=== PATIENT | female | born 2000 | race Caucasian/White ===

== ENCOUNTER 2020-07-15 10:00 | Outpatient (RCR) | payer OTHER, MEDICAID, SELFPAY ==
--- NOTE | 2020-04-16 14:26 | PTOPEVAL ---
PHYSICAL THERAPY EVALUATION AND PLAN OF CARE Thank you for referring Martine Lennon to [facility].? The patient is scheduled to be seen for therapy? 2x/week for 4-6 weeks. Please review, sign, date and return this plan of care GLORIA. I agree with and certify that the following plan of care is medically necessary. Referring Physician Date Attending Provider: Courtney Vides, MD Evaluation Respiratory History Hx Asthma Yes Diagnosis left shoulder pain Onset 3 years ago Subjective Information Martine is here today reporting Query Text:As Reported By Patient/ difficulty using left shoulder Family . States that she was told she uses her trapezius muscle instead of rotator cuff and so moving the arm is diffcult. Has pain in the left shoulder when using the arm alot. Hand Dominance Right Self Report Pain Assessment Left Shoulder(s) Reported Pain Level 0 Pain Description Sharp Pain Frequency Chronic,Intermittent Lowest Pain Intensity 0 Greatest Pain Intensity 6 Pain Aggravating Factors Lifting Pain Score Pain Score 0: Self Report Upper Extremity Range of Motion Scapular/ Shoulder Range of Motion Right Shoulder Flexion - Active 165 Shoulder Abduction - Active 165 Shoulder Medial Rotation - Active 80 Shoulder Medial Rotation - Active contralateral scapular tip Query Text:Reach Behind the Back Left Shoulder Flexion - Active 135 Shoulder Abduction - Active 127 Shoulder Medial Rotation - Active 49 Shoulder Medial Rotation - Active contralateral scapular tip Query Text:Reach Behind the Back Scapular/Shoulder Right Scapular Retraction - Middle Trapezius 3- Fair - Scapular Retraction - Lower Trapezius 3- Fair - Shoulder Flexion Strength 4+ Good + Shoulder Abduction Strength 4+ Good + Shoulder Medial Rotation Strength 4+ Good + Shoulder Lateral Rotation Strength 4+ Good + Left Scapular Retraction - Middle Trapezius 3- Fair - Scapular Retraction - Lower Trapezius 3- Fair - Shoulder Flexion Strength 3+ Fair + Shoulder Abduction Strength 3+ Fair + Shoulder Medial Rotation Strength 4 Good Shoulder Lateral Rotation Strength 4- Good - Sitting Position Posture Evaluation View Anterior Head/C-Spine Posture Extended Thoracic Spine Posture Neutral Shoulder Posture (L) Forward Scapula Posture (L) Protracted,(R) Protracted,tipped Palpation trigger point noted to left and right upper trapezius; decreased cervical cur
--- NOTE | 2020-05-14 08:14 | PTOPEVAL ---
PHYSICAL THERAPY PLAN OF CARE UPDATE AND PROGRESS REPORT Thank you for referring Martine Lennon to [facility].? The patient is scheduled to be seen for therapy? 2x/week for 4 weeks. Please review, sign, date and return this plan of care GLORIA. I agree with and certify that the following plan of care is medically necessary. Referring Physician Date Attending Provider: Courtney Vides, MD Progress Diagnosis left shoulder pain Onset 3 years ago Subjective Information Martine reports there are some Query Text:As Reported By Patient/ changes in the shoulder pain. Family Does continue to experience pain symptoms. Notes that symptoms increase while driving. Self Report Pain Assessment Left Shoulder(s) Reported Pain Level 3 Pain Description Aching,Sharp Pain Frequency Chronic,Intermittent Pain Aggravating Factors Lifting Pain Score Pain Score 3: Self Report Additional Pain Score Comments reported pain comes and goes depends on what I did that day Upper Extremity Range of Motion Scapular/ Shoulder Range of Motion Right Shoulder Flexion - Active 165 Shoulder Abduction - Active 165 Shoulder Medial Rotation - Active 80 Shoulder Medial Rotation - Active contralateral scapular tip Query Text:Reach Behind the Back Left Shoulder Flexion - Active 150 Shoulder Abduction - Active 140 Shoulder Medial Rotation - Active contralateral scapular tip Query Text:Reach Behind the Back Shoulder Lateral Rotation - Active 65 Upper Extremity Muscle Strength Testing Scapular/Shoulder Right Scapular Retraction - Middle Trapezius 3- Fair - Scapular Retraction - Lower Trapezius 3- Fair - Shoulder Flexion Strength 4+ Good + Shoulder Abduction Strength 4+ Good + Shoulder Medial Rotation Strength 4+ Good + Shoulder Lateral Rotation Strength 4+ Good + Left Scapular Retraction - Middle Trapezius 3- Fair - Scapular Retraction - Lower Trapezius 3- Fair - Shoulder Flexion Strength 4 Good Shoulder Abduction Strength 4 Good Shoulder Medial Rotation Strength 4 Good Shoulder Lateral Rotation Strength 4 Good PT Clinical Summary Martine is demonstrating progress toward meeting her functional goals. Demonstrating significantly improved ROM and mild progress in strengthening. She continues to experience mild to moderate limitations as well as pain symptoms. I recommend continuing skilled
--- NOTE | 2020-05-28 09:39 | PCPTNOTE ---
Addendum entered by Sindhu Bean, PT, DPT 05/28/20 10:50: Patient's mother called back to inform that Martine did not have a ride for her appointment this morning, but will be at her next appointment. Original Note: Patient did not show up for scheduled appointment this date. Called and left a message with her next appointment date and time.
--- NOTE | 2020-06-12 13:14 | PTOPEVAL ---
PHYSICAL THERAPY PLAN OF CARE UPDATE Thank you for referring Martine Lennon to [facility].? The patient is scheduled to be seen for therapy? 2x/week for 4 weeks. Please review, sign, date and return this plan of care GLORIA. I agree with and certify that the following plan of care is medically necessary. Referring Physician Date Attending Provider: Courtney Vides, MD Diagnosis left shoulder pain Onset 3 years ago Subjective Information Reports that the left shoulder Query Text:As Reported By Patient/ no longer hurts every day. Family There continue to be days that are really bad without reason. There are also times there is a lot of pain if she is using the arm alot of if she is using the arm overhead a lot. States that when she has a lot of pain she uses ice on the shoulder. Self Report Pain Assessment Left Shoulder(s) Reported Pain Level 0 Pain Description Aching Pain Frequency Chronic,Intermittent Pain Aggravating Factors Lifting Pain Score Scapular/ Shoulder Range of Motion Right Shoulder Flexion - Active 165 Shoulder Abduction - Active 165 Shoulder Medial Rotation - Active 80 Shoulder Medial Rotation - Active contralateral scapular tip Query Text:Reach Behind the Back Left Shoulder Flexion - Active 150 Shoulder Abduction - Active 140 Shoulder Medial Rotation - Active contralateral scapular tip Query Text:Reach Behind the Back Shoulder Lateral Rotation - Active 65 Upper Extremity Muscle Strength Testing Scapular/Shoulder Right Scapular Retraction - Middle Trapezius 3 Fair Scapular Retraction - Lower Trapezius 3 Fair Shoulder Flexion Strength 4+ Good + Shoulder Abduction Strength 4+ Good + Shoulder Medial Rotation Strength 4+ Good + Shoulder Lateral Rotation Strength 4+ Good + Left Scapular Retraction - Middle Trapezius 3- Fair - Scapular Retraction - Lower Trapezius 2+ Poor + Shoulder Flexion Strength 4+ Good + Shoulder Abduction Strength 4+ Good + Shoulder Medial Rotation Strength 4+ Good + Shoulder Lateral Rotation Strength 4+ Good + Posture Posture Sitting Position Posture Evaluation View Anterior Head/C-Spine Posture Extended Thoracic Spine Posture Neutral Shoulder Posture (L) Forward Scapula Posture (L) Protracted,(R) Protracted, (L) Tipped,(R) Tipped Palpation decreased cervical curve; notes tenderness today along lateral scapular border PT Clinical S
--- NOTE | 2020-07-15 10:32 | PTOPEVAL ---
PHYSICAL THERAPY DISCHARGE NOTE Thank you for referring Martine Lennon to [facility]. Please review, sign, date and return this plan of care GLORIA. I agree with and certify that the following plan of care is medically necessary. Referring Physician Date Attending Provider: Courtney Vides, MD Diagnosis left shoulder pain Onset 3 years ago Subjective Information Reports nothing new. Reports the shoulder is good. Self Report Pain Assessment Left Shoulder(s) Reported Pain Level 4 Pain Description Soreness Pain Frequency Intermittent Pain Behaviors None Interventions Used Interventions Used By Clinicians Exercise,Manual Therapy Techniques Pain Relief Interventions Used By None Patient Upper Extremity Range of Motion Scapular/ Shoulder Range of Motion Right Shoulder Flexion - Active 160 Shoulder Abduction - Active 160 Shoulder Medial Rotation - Active 80 Shoulder Medial Rotation - Active contralateral scapular tip Query Text:Reach Behind the Back Left Shoulder Flexion - Active 155 Shoulder Abduction - Active 155 Shoulder Medial Rotation - Active contralateral scapular tip Query Text:Reach Behind the Back Shoulder Lateral Rotation - Active 65 Upper Extremity Muscle Strength Testing Scapular/Shoulder Right Scapular Retraction - Middle Trapezius 3+ Fair + Scapular Retraction - Lower Trapezius 3+ Fair + Shoulder Flexion Strength 4+ Good + Shoulder Abduction Strength 4+ Good + Shoulder Medial Rotation Strength 4+ Good + Shoulder Lateral Rotation Strength 4+ Good + Left Scapular Retraction - Middle Trapezius 3 Fair Scapular Retraction - Lower Trapezius 3 Fair Shoulder Flexion Strength 4+ Good + Shoulder Abduction Strength 4+ Good + Shoulder Medial Rotation Strength 4+ Good + Shoulder Lateral Rotation Strength 4+ Good + Posture Posture Evaluation View Anterior Head/C-Spine Posture Extended Thoracic Spine Posture Neutral Shoulder Posture (L) Rounded,(R) Rounded Scapula Posture (L) Protracted,(R) Protracted, (L) Winged,(R) Winged Palpation decreased cervical curve Rehab Teaching Teaching Topic Rehab Teaching Topic Components Body Mechanics,Exercise, Positioning As Pertains To Body Mechanics,Progression Recipient Patient Learning Preferences Demonstration,Discussion Barriers to Learning Motivation,Physical Readiness to Learn Fair Response Returns Demonstration, Verbalizes Understanding,
== END 2020-07-15 23:59 | disposition home or self-care (01) ==
LOC: ANHPT 10:00
PROVIDERS: Referring Provider Internal Medicine; Visit Provider Internal Medicine
DX: S46.012D Strain of muscle(s) and tendon(s) of the rotator cuff of left shoulder, subsequent encounter (principal); M95.8 Other specified acquired deformities of musculoskeletal system; M89.9 Disorder of bone, unspecified
CPT/HCPCS: 97110; 97140; 97161

== ENCOUNTER 2021-03-31 22:56 | Emergency (ER) | payer BC, SELFPAY ==
--- NOTE | ~2021-03-31 | CT_ITS ---
EXAMINATION: CT brain wo con INDICATION: Headache, right-sided numbness, three syncopal episodes in the past week COMPARISON: 03/15/2018 TECHNIQUE: Standard unenhanced head CT. The dose-length product (DLP) was 529.67 mGy-cm. The mA was a djusted according to patient size. Iterative reconstruction technique was employed. FINDINGS: There is no intracranial hemorrhage, acute infarction, or abnormal mass lesion. The ventric les are normal. There is no abnormal mass effect or midline shift. The reed-white matter differentiat ion is normal. The basal cisterns are patent. The orbits are normal. The paranasal sinuses, mastoids and calvarium are normal. IMPRESSION: 1. No acute intracranial abnormality. Reviewed, dictated and finalized at location A.
[2021-03-31 22:57] VITALS: BP 141/101; PULSE 100; RESP 20; TEMP 36.6; O2SAT 100
--- NOTE | 2021-03-31 23:02 | ECG_ITS ---
Measurements Intervals [place] Rate: 90 P: 53 DC: 150 QRS: 52 QRSD: 74 T: -12 QT: 354 QTc: 434 Interpretive Statements SINUS RHYTHM POSSIBLE LEFT ATRIAL ENLARGEMENT BORDERLINE ST-T WAVE ABNORMALITY- ANTEROLAT/INF LEADS BASELINE WANDER- V3-V4 BORDERLINE ECG Electronically Signed On 04-01-2021 6:28:28 CDT by Pio Kelly D.O.
[2021-03-31 23:26] LABS: Basophils Percent Auto 0.5 % (0.2-1.2); Eosinophils Absolute Auto 0.1 K/mm3 (0-0.3); Eosinophils Percent Auto 0.7 % (0-4.4); Hematocrit 41.7 % (37.0-47.0); Hemoglobin 14.3 g/dL (12.0-15.0); Immature Granulocyte Absolute 0.01 K/mm3 (0.00-0.031); Immature Granulocyte Percent A 0.1 % (0-0.5); Lymphocytes Absolute Auto 4.03 K/mm3 (0.9-3.2); Mean Corpuscular HGB Conc 34.3 g/dl (32-36); Mean Corpuscular Volume 90.5 fl (80-100); Mean Platelet Volume 11.6 fl (7.4-10.4); Monocytes Absolute Auto 0.3 K/mm3 (0.1-0.6); Neutrophils Absolute Auto 3.9 K/mm3 (1.3-6.7); Neutrophils Percent Auto 46.7 % (45.5-73.1); Platelet Count Result 216 k/mm3 (150-375); Red Blood Count 4.61 M/mm3 (4.2-5.4); Red Cell Distribution Width 12.4 % (11.5-14.5); White Blood Count 8.4 K/mm3 (4.5-10.0)
[2021-03-31 23:35] LABS: Anion Gap 7 mmol/L (8-16); Blood Urea Nitrogen 13 mg/dL (7-17); Calcium 9.2 mg/dL (8.4-10.2); Carbon Dioxide 25 mmol/L (22-30); Chloride 108 mmol/L (98-107); Estimated CRCL calculation 100 ml/min; Estimated Glomerular Filt Rate > 60; Glucose 127 mg/dL (65-110); Potassium 3.6 mmol/L (3.4-5.0); Sodium 140 mmol/L (137-145)
[2021-04-01] VITALS (28 sets, daily range): BP systolic 100–121; BP diastolic 62–88; PULSE 56–89; RESP 10–29; TEMP 36.1; O2SAT 96–100
--- NOTE | 2021-04-01 01:15 | PC.NURSE ---
pt here c/o numbness to right side of body. able to move all extremities and able to ambulate without difficulty. pt also c/o fingers in right hand closing up into a fist. pt's mother reports pt has silent migraines and right side of body did react like this during first episode of silent migraines 5 years ago.
[2021-04-01] MEDS: METOCLOPRAMIDE HCL INJ 10 MG/2 ML VIAL IV PUSH (02:59)
[2021-04-01] MEDS: KETOROLAC 30 MG/ML VIAL (*BKC) IV PUSH (02:59)
--- NOTE | 2021-04-01 04:04 | ED.GENADULT ---
HPI - General Adult General Chief complaint: Unspecified Stated complaint: cant feel the R side of body/ CP Time Seen by Provider: 04/01/21 01:36 History of Present Illness HPI narrative: Patient is a 20-year-old female presents to emergency department with chief complaint of numbness on the right side of the face and numbness in the right upper extremity and headache. The patient reports that she has history of silent migraines before in the past and reports that she had some paresthesias with her face previously patient reports this feels similar except this time she actually does have a headache in the right side of her head and reports that she has slight weakness in the right upper extremity and paresthesias in the right upper extremity. Patient reports she has seen a neurologist before in the past for this and reports that the symptoms started around 6:00 PM. Related Data Allergies Allergy/AdvReac Type Severity Reaction Status Date / Time diphenhydramine Allergy Anaphylaxis Verified 04/01/21 02:58 [From [facility]] Review of Systems Review of Systems: A 10 system review of systems was completed on the patient and is negative except for what is stated in the HPI. Nursing and ancillary documentation was reviewed. [facility] Social History Social History Gender identity (if verbalized by the patient): Female Exam Narrative: GENERAL: Well-appearing, well-nourished, and in no acute distress. HEAD: Normocephalic, atraumatic. EYES: PERRLA and EOMI. ENT: Nares clear, no rhinorrhea or epistaxis. Mucous membranes moist. NECK: Supple. CHEST: Clear to auscultation. No respiratory distress. HEART: Regular rate and rhythm. No murmur heard. Normal peripheral pulses. ABDOMEN: Soft, nontender, nondistended, normal active bowel sounds. EXTREMITIES: Normal range of motion. No edema. SKIN: Warm, dry, no rash. NEURO: No focal deficits. Alert and oriented x3. PSYCH: Normal mood and affect. Course Course Emergency Course: Patient CT head showed no evidence of acute abnormality The patient received Toradol and Reglan and had significant improvement in her symptoms. Vital Signs Vital signs: Vital Signs Temperature 36.6 C 03/31/21 22:57 Pulse Rate 100 03/31/21 22:57 Respiratory Rate 20 03/31/21 22:57 Blood Pressure 141/101 H 03/31/21 22:57 Pulse Oximetry 100 03/31/21 22:57 Temperature 36.6 C 03/31/21 22:57 Pulse Rate 77 04/01/21 03:16 Respiratory Rate 21 H 04/01/21 03:16 Blood Pressure 106/65 04/01/21 03:16 Pulse Oximetry 98 04/01/21 03:16 Medical Decision Making Vital Signs Vital Signs: Vital Signs Temperature 36.6 C 03/31/21 22:57 Pulse Rate 100 03/31/21 22:57 Respiratory Rate 20 03/31/21 22:57 Blood Pressure 141/101 H 03/31/21 22:57 Pulse Oximetry 100 03/31/21 22:57 Temperature 36.6 C 03/31/21 22:57 Pulse Rate 77 04/01/21 03:16 Respiratory Rate 21 H 04/01/21 03:16 Blood Pressure 106/65 04/01/21 03:16 Pulse Oximetry 98 04/01/21 03:16 Lab Data Result diagrams: 03/31/21 23:15 03/31/21 23:15 Labs: Lab Results 03/31/21 03/31/21 Range/Units 23:15 23:15 WBC 8.4 (4.5-10.0) K/mm3 RBC 4.61 (4.2-5.4) M/mm3 Hgb 14.3 (12.0-15.0) g/dL Hct 41.7 (37.0-47.0) % MCV 90.5 (80-100) fl MCH 31.0 (26-34) pg MCHC 34.3 (32-36) g/dl RDW 12.4 (11.5-14.5) % Plt Count 216 (150-375) k/mm3 MPV 11.6 H (7.4-10.4) fl Immature Gran % (Auto) 0.1 (0-0.5) % Neut % (Auto) 46.7 (45.5-73.1) % Lymph % (Auto) 48.0 H (18.3-44.2) % [place] % (Auto) 4.0 (2.6-8.5) % Eos % (Auto) 0.7 (0-4.4) % Baso % (Auto) 0.5 (0.2-1.2) % Lymph # (Auto) 4.03 H (0.9-3.2) K/mm3 [place] # (Auto) 0.3 (0.1-0.6) K/mm3 Eos # (Auto) 0.1 (0-0.3) K/mm3 Baso # (Auto) 0.0 (0.0-0.1) K/mm3 Abs Immat Gran (auto) 0.01 (0.00-0.031) K/mm3 Abs
== END 2021-04-01 04:42 | disposition home or self-care (01) ==
PROVIDERS: Emergency Provider Emergency Medicine
DX: G43.409 Hemiplegic migraine, not intractable, without status migrainosus (principal); R94.31 Abnormal electrocardiogram [ECG] [EKG]
CPT/HCPCS: 36415; 70450; 80048; 81025; 85025; 93005; 96374; 96375; 99284; J1885; J2765

== ENCOUNTER 2021-08-13 10:01 | Outpatient (CLI) | payer BC, SELFPAY ==
[2021-08-13 11:16] LABS: Hematocrit 40.1 % (37.0-47.0); Hemoglobin 13.9 g/dL (12.0-15.0); Mean Corpuscular HGB Conc 34.7 g/dl (32-36); Mean Corpuscular Hemoglobin 31.7 pg (26-34); Mean Corpuscular Volume 91.6 fl (80-100); Mean Platelet Volume 10.9 fl (7.4-10.4); Platelet Count Result 219 k/mm3 (150-375); Red Blood Count 4.38 M/mm3 (4.2-5.4); Red Cell Distribution Width 12.5 % (11.5-14.5); White Blood Count 7.8 K/mm3 (4.5-10.0)
[2021-08-13 12:14] LABS: Beta HCG Quantitative < 2.39 mIU/ML
== END 2021-08-13 10:02 | disposition home or self-care (01) ==
PROVIDERS: Visit Provider Obstetrics & Gynecology
DX: N92.1 Excessive and frequent menstruation with irregular cycle (principal)
CPT/HCPCS: 36415; 84443; 84702; 85027

== ENCOUNTER 2021-08-16 21:37 | Emergency (ER) | payer BC, SELFPAY ==
--- NOTE | ~2021-08-16 | CT_ITS ---
EXAMINATION: CT brain wo con DATE: 08/17/2021 00:54 INDICATION: Headache. TECHNIQUE: Computed tomography (CT) of the head was performed without intravenous contrast. The mA wa s adjusted according to patient size. Iterative reconstruction technique was employed. The dose-lengt h product was 605.33 mGy-cm. COMPARISON: Head CT 04/01/21 FINDINGS: There is no intracranial hemorrhage, acute infarction, or abnormal intracranial mass lesion . The ventricles are normal in size. The mastoid air cells are normal. The paranasal sinuses are jaylin r. The orbits are normal. IMPRESSION: 1. Normal brain. Reviewed, dictated and finalized at location A. STOMACH PREPARER IMPRESSION: 1. Normal brain.
[2021-08-16 21:42] VITALS: BP 135/78; PULSE 98; RESP 15; TEMP 36.4; O2SAT 97
--- NOTE | 2021-08-16 21:45 | PC.NURSE ---
mother's name is Pavel [phone]
--- NOTE | 2021-08-16 23:46 | PC.NURSE ---
Patient awake and alert, speaking with this RN about speaking with her mother. Patient informed of phone at security desk. Patient a/ox4.
[2021-08-17] MEDS: KETOROLAC 15 MG/ML VIAL (*BKC) IV PUSH (00:38)
[2021-08-17] MEDS: METOCLOPRAMIDE HCL INJ 10 MG/2 ML VIAL IV PUSH (00:39)
[2021-08-17] MEDS: SODIUM CHLORIDE 0.9% IV 1,000 ML 999 ML IV CONT (00:39)
--- NOTE | 2021-08-17 02:57 | ED.GENADULT ---
HPI - General Adult General Chief complaint: Headache Stated complaint: complex migraines Time Seen by Provider: 08/17/21 00:13 History of Present Illness HPI narrative: Patient 21-year-old female presents emerged part with chief complaint of headache. Patient reports she has history of complicated migraines and noticed that she started having a headache again and started feeling strange. Patient states little atypical compared to her normal migraine but states that she feels a little weaker than normal and has had some mild difficulty with getting appropriate words out. Patient denies any other focal neurological deficits. Related Data Home Medications Medication Instructions Recorded Confirmed albuterol sulfate 90 mcg/actuation 2 inh INHALATION Q6H PRN 08/13/21 08/13/21 breath activated powder inhaler Allergies Allergy/AdvReac Type Severity Reaction Status Date / Time latex Allergy Unknown Rash Verified 08/16/21 21:37 diphenhydramine Allergy Anaphylaxis Verified 08/16/21 21:37 [From Benadryl] Review of Systems Review of Systems: A 10 system review of systems was completed on the patient and is negative except for what is stated in the HPI. Nursing and ancillary documentation was reviewed. [facility] Past Medical History Medical History Acid reflux Anxiety Asthma Migraine silent migraines makes her lose feeling in her entire body extreme migraines make her show signs of having a stroke Surgical History Surgical History History of oral surgery 2003, 2018 History of tonsillectomy 2007 Family History Family History Father Alcoholism Hypertension Anxiety and depression Grandparent Asthma Uterine fibroid Skin cancer great grandmother Bladder cancer great grandfather Malignant neoplasm of prostate Brain cancer Diabetes mellitus great grandfather Hypertension Heart disease Cerebrovascular accident great grandfather Other Asthma aunt Lung cancer great grandmother Grandparent Diabetes mellitus Hypertension Heart disease Grandparent Diabetes mellitus Hypertension Heart disease Grandparent Diabetes mellitus great grandmother Mother Uterine fibroid Social History Social History Smoking status: Never smoker Alcohol intake: never Substance use: never Gender identity (if verbalized by the patient): Female Agree to blood products: Yes Exam Narrative: GENERAL: Well-appearing, well-nourished, and in no acute distress. HEAD: Normocephalic, atraumatic. EYES: PERRLA and EOMI. ENT: Nares clear, no rhinorrhea or epistaxis. Mucous membranes moist. NECK: Supple. CHEST: Clear to auscultation. No respiratory distress. HEART: Regular rate and rhythm. No murmur heard. Normal peripheral pulses. ABDOMEN: Soft, nontender, nondistended, normal active bowel sounds. EXTREMITIES: Normal range of motion. No edema. SKIN: Warm, dry, no rash. NEURO: No focal deficits. Alert and oriented x3. PSYCH: Normal mood and affect. Course Course Emergency Course: CT had showed no evidence of focal findings Patient received Toradol and Reglan. Patient is feeling much better at this time feels back to normal. Vital Signs Vital signs: Vital Signs Temperature 36.4 C 08/16/21 21:42 Pulse Rate 98 08/16/21 21:42 Respiratory Rate 15 08/16/21 21:42 Blood Pressure 135/78 08/16/21 21:42 Pulse Oximetry 97 08/16/21 21:42 Temperature 36.4 C 08/16/21 21:42 Pulse Rate 98 08/16/21 21:42 Respiratory Rate 15 08/16/21 21:42 Blood Pressure 135/78 08/16/21 21:42 Pulse Oximetry 97 08/16/21 21:42 Medical Decision Making Vital Signs Vital Signs: Vital Signs Temp
[2021-08-17 03:38] VITALS: BP 116/59; PULSE 61; RESP 15; O2SAT 100
== END 2021-08-17 03:38 | disposition home or self-care (01) ==
PROVIDERS: Emergency Provider Emergency Medicine
DX: G43.909 Migraine, unspecified, not intractable, without status migrainosus (principal)
CPT/HCPCS: 70450; 96361; 96374; 96375; 99284; J1885; J2765; J7030

== ENCOUNTER 2021-08-21 09:07 | Outpatient (CLI) | payer BC, SELFPAY ==
--- NOTE | ~2021-08-21 | US_ITS ---
EXAMINATION: US pelvic complete w TV DATE: 08/21/2021 10:12 INDICATION: Excessive and frequent menstruation Comparison:CT dated 12/30/2016 TECHNIQUE: Multiple transabdominal and endovaginal sonographic images of the pelvis performed. FINDINGS: The uterus measures 7.2 x 4.5 x 4 cm. The endometrial complex measures 4.5 mm. The right ovary measures 5.6 x 3.3 x 2.7 cm and the left ovary measures 4.2 x 3 x 2.5 cm. There is 2. 3 cm right ovarian cyst. There are small follicles in each ovary. Normal doppler signal in both ovari es. There is free fluid in the pelvis. There are no abnormal masses seen on either side. IMPRESSION: 1. Right ovarian simple cyst measuring 2.3 cm. Reviewed, dictated and finalized at location A. ENT SCHEDULING MANAGER
== END 2021-08-21 09:08 | disposition home or self-care (01) ==
LOC: ANHIMG 09:08
PROVIDERS: Visit Provider Obstetrics & Gynecology
DX: N92.1 Excessive and frequent menstruation with irregular cycle (principal); R10.2 Pelvic and perineal pain; N83.201 Unspecified ovarian cyst, right side
CPT/HCPCS: 76830; 76856

== ENCOUNTER 2021-10-24 16:02 | Outpatient (CLI) | payer BC, SELFPAY ==
--- NOTE | ~2021-10-24 | US_ITS ---
EXAMINATION: US pelvic complete w TV DATE: 10/24/2021 16:28 INDICATION: Right ovarian cyst TECHNIQUE: Multiple transabdominal and endovaginal sonographic images of the pelvis were obtained. COMPARISON: 08/21/2021 FINDINGS: The uterus measures 7.8 x 4.2 x 3.2 cm. The endometrial complex measures 3 mm. The right ov cris measures 3.2 x 2.7 x 2.6 cm and contains a simple cyst measuring up to 2.4 cm. The left ovary kailash sures 2.8 x 3.4 x 1.9 cm. There is normal vascular flow in the ovaries. There is no free fluid in the pelvis. IMPRESSION: 1. 2.4 cm right ovarian cyst, considered normal in a reproductive age female. Reviewed, dictated and finalized at location F. ING EFFICIENCY COURSE DIRECTOR
== END 2021-10-24 16:03 | disposition home or self-care (01) ==
LOC: ANHIMG 16:04
PROVIDERS: Visit Provider Obstetrics & Gynecology
DX: N83.201 Unspecified ovarian cyst, right side (principal)
CPT/HCPCS: 76830; 76856

== ENCOUNTER 2021-11-26 09:16 | Outpatient (CLI) | payer BC, SELFPAY ==
[2021-11-26 09:39] LABS: Hematocrit 41.7 % (37.0-47.0); Hemoglobin 13.9 g/dL (12.0-15.0); Mean Corpuscular HGB Conc 33.3 g/dl (32-36); Mean Corpuscular Volume 93.1 fl (80-100); Mean Platelet Volume 10.6 fl (7.4-10.4); Platelet Count Result 249 k/mm3 (150-375); Red Blood Count 4.48 M/mm3 (4.2-5.4); Red Cell Distribution Width 12.4 % (11.5-14.5); White Blood Count 6.6 K/mm3 (4.5-10.0)
== END 2021-11-26 09:17 | disposition home or self-care (01) ==
LOC: ANHLAB 09:17
PROVIDERS: Visit Provider Obstetrics & Gynecology
DX: N92.6 Irregular menstruation, unspecified (principal)
CPT/HCPCS: 36415; 84443; 85027

== ENCOUNTER 2021-12-05 10:09 | Outpatient (CLI) | payer BC, SELFPAY ==
--- NOTE | ~2021-12-05 | US_ITS ---
EXAMINATION: US pelvic complete w TV EXAM DATE: 12/05/2021 11:37 INDICATION: N83.201 - Unspecified ovarian cyst, right side. TECHNIQUE: Pelvic transabdominal and transvaginal sonogram was performed. There are multiple graysca le and Doppler images available for interpretation. Comparison is made to prior examination from 07/31. FINDINGS: Uterus measures 7.5 x 4.6 x 3.6 cm, and is morphologically normal. Endometrial stripe kailash sures 6 mm, within normal limits. There is small free pelvic fluid. Right adnexa: The ovary measures 4.9 x 2.7 x 2.9 cm and is morphologically normal, again contains the dominant physiologic follicle. Ovarian vascular flow confirmed. Left adnexa: The ovary measures 4.2 x 2.1 x 3.1 cm and is morphologically normal. Ovarian vascular fl ow confirmed. IMPRESSION: Unremarkable pelvic ultrasound exam. Reviewed, dictated and finalized at location A.
== END 2021-12-05 10:10 | disposition home or self-care (01) ==
PROVIDERS: Visit Provider Student in an Organized Health Care Education/Training Program
DX: N83.201 Unspecified ovarian cyst, right side (principal)
CPT/HCPCS: 76830; 76856

== ENCOUNTER 2022-01-12 11:17 | Outpatient (CLI) | payer BC, SELFPAY ==
--- NOTE | 2022-01-12 | ECG_ITS ---
Measurements Intervals [place] Rate: 60 P: 4 CO: 168 QRS: 68 QRSD: 71 T: -16 QT: 388 QTc: 388 Interpretive Statements SINUS RHYTHM ATRIAL PREMATURE COMPLEX BORDERLINE ST-T WAVE ABNORMALITY- ANTEROLAT/INF LEADS BASELINE WANDER- I, II, III, AVR, AVF, V3-V6 BORDERLINE ECG Electronically Signed On 01-12-2022 12:36:06 CDT by Pio Kelly D.O.
--- NOTE | ~2022-01-12 | XR_ITS ---
EXAMINATION: XR abdomen/kub 1V DATE: 01/12/2022 11:40 INDICATION: Constipation. Abdomen pain. TECHNIQUE: Supine and upright views of the abdomen. FINDINGS: No prior studies for comparison. The visualized lung parenchyma is normal.. There is a nonobstructive bowel gas pattern. There is mode rate gastric distention. Gas and stool are seen throughout the colon to the level of the rectum. The re is no free air. IMPRESSION: 1. Moderate gastric distention, nonspecific. Reviewed, dictated and finalized at location A.
== END 2022-01-12 11:18 | disposition home or self-care (01) ==
LOC: ANHIMG 11:25
DX: Z86.79 Personal history of other diseases of the circulatory system (principal); K59.00 Constipation, unspecified; R94.31 Abnormal electrocardiogram [ECG] [EKG]
CPT/HCPCS: 74018; 93005